=== PATIENT | female | born 1980 | race Hispanic/Latino ===

== ENCOUNTER 2017-01-05 15:24 | Emergency (ER) | payer SELFPAY ==
[2017-01-05 15:52] VITALS: TEMP 98.5; O2SAT 100
--- NOTE | 2017-01-05 17:23 | ED.PDOC ---
History of Present Illness - General Chief Complaint: General Stated Complaint: chronic leg pain Time Seen by Provider: 01/05/17 17:23 Source: patient, RN notes reviewed, Vital Signs reviewed, EMS notes reviewed Exam Limitations: no limitations - History of Present Illness Initial Comments: Sherry Hickey 36 y/o female with history of left chronic leg pain burning due ro rsd after she sustained left ankle fracture from sports injury 13 years ago and had it since then. Timing/Duration: other - chronic Improving Factors: other - taking pain meds Worsening Factors: movement Associated Symptoms: denies symptoms Allergies/Adverse Reactions: Allergies NO KNOWN ALLERGY Allergy (Verified 01/05/17 15:51) Home Medications: Ambulatory Orders HYDROcodone 10MG/APAP 325MG [[place] 10/325] 1 ea PO .Q4H PRN #20 tab 04/29/14 Pregabalin [Lyrica] 100 mg PO TID #60 cap 04/29/14 Acetamin W/Cod #3 Tab [Tylenol w/CODEINE #3] 1 ea PO Q6HRS #10 tab 01/05/17 PARoxetine HCL [Paxil] 20 mg PO DAILY #14 tab 01/05/17 Pregabalin [Lyrica] 100 mg PO TID #60 cap 01/05/17 Review of Systems - Review of Systems Constitutional: States: no symptoms reported EENTM: States: no symptoms reported Respiratory: States: no symptoms reported Cardiology: States: no symptoms reported Gastrointestinal/Abdominal: States: no symptoms reported Genitourinary: States: no symptoms reported Musculoskeletal: States: see HPI Skin: States: no symptoms reported Neurological: States: see HPI Endocrine: States: no symptoms reported Past Medical History (General) - Patient Medical History Hx Other PMH: Yes - rsd Hx Other - free text: Generalized anxiety disorder Surgical History: appendectomy, cholecystectomy, tonsillectomy, other - hysterectomy - Vaccination History Hx Tetanus, Diphtheria Vaccination: Yes Hx Influenza Vaccination: Yes Hx Pneumococcal Vaccination: No Immunizations Up to Date: Yes - Social History Hx Tobacco Use: No Hx Alcohol Use: Yes - occasional Hx Substance Use: No Hx Substance Use Treatment: No Hx Depression: No - Activities of Daily Living Patient Lives Alone: No - family Hospice Agency (if applicable):: None Grooming Ability: Independent Eating (Feeding) Ability: Independent Toileting Ability: Independent - Female History Patient is a Female of Child Bearing Age (10 -59 yrs old): No Patient : No Family Medical History - Family History Mother Living Status: Still Living Hx Family Hypertension: Yes Physical Exam - Physical Exam General Appearance: Alert, Anxious, No apparent distress Eye Exam: bilateral normal Ears, Nose, Throat: hearing grossly normal, normal ENT inspection, normal pharynx Neck: non-tender, full range of motion, supple Respiratory: chest non-tender, lungs clear, normal breath sounds Cardiovascular/Chest: normal peripheral pulses, regular rate, rhythm, no murmur Peripheral Pulses: radial,right: 2+, radial,left: 2+ Gastrointestinal/Abdominal: normal bowel sounds, non tender, soft Back Exam: normal inspection, no CVA tenderness Extremity: normal range of motion, non-tender, no pedal edema, no calf tenderness Neurologic: plate washer II-XII nml as tested, no motor/sensory deficits, alert, normal mood/affect, oriented x 3 DTR: 2+: Patellar, left, Patellar, right Skin Exam: normal color, warm/dry, cyanosis Lymphatic: no adenopathy Departure - Departure Clinical Impression: RSD (reflex sympathetic dystrophy) Neuropathic pain, leg Qualifiers: Laterality: left Qualified Code(s): G57.92 - Unspecified mononeuropathy of left lower limb Time of Disposition: 17:51 Disposition: Discharge to Home or Self Care Departure Forms: ED Discharge - Pt. Copy, Patient Portal Self Enrollment Instructions: Natural and Alternative Treatment Study Report: Vitamin C for Preventing Re Referrals: Dwayne Gomez MD [Primary Care Provider] - 1-2 Weeks Prescriptions: Acetamin W/Cod #3 Tab [Tylenol w/CODEINE #3] 1 ea PO Q6HRS #10 tab PARoxetine HCL [Paxil] 20 mg PO DAILY #14 tab Pregabalin [Lyrica] 100 mg PO TID #60 cap Home Medications: Ambulatory Orders HYDROcodone 10MG/APAP 325MG [[place] 10/325] 1 ea PO .Q4H PRN #20 tab 04/29/14 Pregabalin [Lyrica] 100 mg PO TID #60 cap 04/29/14 Acetamin W/Cod #3 Tab [Tylenol w/CODEINE #3] 1 ea PO Q6HRS #10 tab 01/05/17 PARoxetine HCL [Paxil] 20 mg PO DAILY #14 tab 01/05/17 Pregabalin [Lyrica] 100 mg PO TID #60 cap 01/05/17 Additional Instructions: KEEP APPOINTMENT WITH [facility]
[2017-01-05] MEDS ORDERED: HYDROcodone 10MG/APAP 325MG 1 EA TAB PO ONE (17:58)
[2017-01-05 18:30] VITALS: BP 131/86
== END 2017-01-05 18:32 | disposition home or self-care (01) ==
LOC: ER 15:24
DX: G90.522 Complex regional pain syndrome I of left lower limb (principal); G89.29 Other chronic pain; Z79.899 Other long term (current) drug therapy

== ENCOUNTER 2017-05-14 22:56 | Emergency (ER) | payer OTHER ==
[2017-05-14 23:26] VITALS: TEMP 98.7
[2017-05-14] MEDS ORDERED: KETOROLAC TROMETHAMINE INJ 30 MG/ML VIAL IV ONE (23:47)
--- NOTE | 2017-05-14 23:50 | ED.PDOC ---
History of Present Illness - General Chief Complaint: Abdominal Pain Stated Complaint: abd pain x4 weeks Time Seen by Provider: 05/14/17 23:14 Source: patient Exam Limitations: no limitations - History of Present Illness Initial Comments: Patient complains of abdominal pain x 3 months. She said she was in shelter for three months and was treated with Macrobid for a UTI. She says that she has had dysuria and low back pain. She has had previous episodes. She says that she is having anxiety with this episode as well. Is only taking Cymbalta at this point. No other complaints. Timing/Duration: changing over time Severity: mild Improving Factors: nothing Worsening Factors: nothing Associated Symptoms: denies symptoms Allergies/Adverse Reactions: Allergies NO KNOWN ALLERGY Allergy (Verified 01/05/17 15:51) Home Medications: Ambulatory Orders HYDROcodone 10MG/APAP 325MG [[place] 10/325] 1 ea PO .Q4H PRN #20 tab 04/29/14 Pregabalin [Lyrica] 100 mg PO TID #60 cap 04/29/14 Acetamin W/Cod #3 Tab [Tylenol w/CODEINE #3] 1 ea PO Q6HRS #10 tab 01/05/17 PARoxetine HCL [Paxil] 20 mg PO DAILY #14 tab 01/05/17 Pregabalin [Lyrica] 100 mg PO TID #60 cap 01/05/17 Review of Systems - Review of Systems Constitutional: States: no symptoms reported EENTM: States: no symptoms reported Respiratory: States: no symptoms reported Cardiology: States: no symptoms reported Gastrointestinal/Abdominal: States: see HPI Genitourinary: States: see HPI Musculoskeletal: States: no symptoms reported Skin: States: no symptoms reported Neurological: States: no symptoms reported Endocrine: States: no symptoms reported Hematologic/Lymphatic: States: no symptoms reported Past Medical History (General) - Patient Medical History Hx Asthma: No Hx of COPD: No Hx Cardiac Disorders: No Hx Diabetes: No - Vaccination History Hx Tetanus, Diphtheria Vaccination: No Hx Influenza Vaccination: No Hx Pneumococcal Vaccination: No - Social History Hx Tobacco Use: Yes Hx Alcohol Use: Yes - seldom Hx Substance Use: No Hx Substance Use Treatment: No Hx Depression: No - Female History Patient : No Family Medical History - Family History Mother Living Status: Still Living Hx Family Hypertension: Yes Physical Exam - Physical Exam General Appearance: Alert Respiratory: lungs clear, normal breath sounds Cardiovascular/Chest: normal peripheral pulses, regular rate, rhythm, no edema Gastrointestinal/Abdominal: normal bowel sounds, non tender, soft Back Exam: normal inspection, no CVA tenderness Skin Exam: normal color Progress - Progress Progress: 05/14/17 23:50 UA unremarkable. Toradol 30 mg IV and Ativan 1 mg IV given. 05/15/17 01:36 CT ab/pelvis showed no acute disease. Patient given referral numbers for gynecology. Laboratory Tests 05/14/17 05/14/17 05/14/17 23:29 23:42 23:42 WBC 8.1 RBC 4.17 L Hgb 11.9 L Hct 35.9 L MCV 86.1 MCH 28.5 MCHC 33.1 RDW 14.3 Plt Count 253 MPV 8.3 Absolute Neuts (auto) 6.00 Absolute Lymphs (auto) 1.40 Absolute Monos (auto) 0.40 Absolute Eos (auto) 0.20 Absolute Basos (auto) 0.00 Neutrophils % 74.4 Lymphocytes % 17.3 L Monocytes % 5.3 Eosinophils % 2.5 Basophils % 0.5 Sodium 142 Potassium 3.7 Chloride 109 Carbon Dioxide 26 Anion Gap 10.7 L BUN 17 Creatinine 0.90 BUN/Creatinine Ratio 18.9 Random Glucose 100 Serum Osmolality 284.7 Calcium 9.4 Total Bilirubin 0.5 AST 30 ALT 37 Alkaline Phosphatase 92 Serum Total Protein 7.0 Albumin 4.1 Globulin 2.9 Albumin/Globulin Ratio 1.4 Lipase 47 Urine Color Yellow Urine Appearance Clear Urine pH 5.5 Ur Specific [place] 1.020 Urine Protein Negative Urine Glucose (UA) Negative Urine Ketones Negative Urine Blood Trace-intact H Urine Nitrite Negative Urine Bilirubin Negative Urine Urobilinogen 0.2 Ur Leukocyte Esterase Negative Urine RBC 0-1 Urine WBC 5-10 H Ur Epithelial Cells 1-3 Urine Bacteria Rare Departure - Departure Clinical Impression: Abdominal pain Disposition: Discharge to Home or Self Care Condition: Good Departure Forms: ED Discharge - Pt. Copy, Patient Portal Self Enrollment Instructions: DI for Abdominal Pain-Adult Diet: resume usual diet Activity: ambulate only with walker Referrals: Dwayne Gomez MD [Primary Care Provider] - 1-2 Weeks Home Medications: Ambulatory Orders HYDROcodone 10MG/APAP 325MG [[place] 10/325] 1 ea PO .Q4H PRN #20 tab 04/29/14 Pregabalin [Lyrica] 100 mg PO TID #60 cap 04/29/14 Acetamin W/Cod #3 Tab [Tylenol w/CODEINE #3] 1 ea PO Q6HRS #10 tab 01/05/17 PARoxetine HCL [Paxil] 20 mg PO DAILY #14 tab 01/05/17 Pregabalin [Lyrica] 100 mg PO TID #60 cap 01/05/17 Additional Instructions: Follow up with a tier in next week.
[2017-05-15 01:18] VITALS: BP 134/89; O2SAT 97
--- NOTE | 2017-05-15 01:23 | CT ---
EXAM DESCRIPTION: Abdomen/Pelvis w/Contrast CLINICAL HISTORY: 37 years Female, abdominal pain COMPARISON: None. TECHNIQUE: Contiguous axial CT images of the abdomen and pelvis were acquired after the administration of intravenous contrast. Coronal and sagittal reformatted images are provided. This exam was performed according to our departmental dose-optimization program which includes use of Automated Exposure Control, adjustment of the mA and/or kV according to patient size and/or use of iterative reconstruction technique. FINDINGS: Chest base: Unremarkable. Liver: Diffuse hepatic steatosis Gallbladder: Surgically absent Spleen: Unremarkable. Adrenals: Unremarkable. Pancreas: Unremarkable. Right Kidney: No renal stones or hydronephrosis. Left Kidney: No renal stones or hydronephrosis. Aorta and branch vessels: Unremarkable. Patent mesenteric vessels. Lymph nodes: No lymphadenopathy. Bowels: No obstruction. Colon: Scattered colonic diverticula. Appendix: Not identified Peritoneum: No free air or free fluid. Pelvic organs: Uterus is absent. No large adnexal mass. Bladder: Unremarkable. Bones and soft tissues: No acute osseous or soft tissue abnormalities. IMPRESSION: No acute intra-abdominal abnormality. Diffuse hepatic steatosis. Scattered colonic diverticula. Electronically signed by: Roc Cline MD 05/15/2017 1:21 AM CDT
== END 2017-05-15 01:45 | disposition home or self-care (01) ==
LOC: ER 22:56
DX: R10.9 Unspecified abdominal pain (principal); Z87.891 Personal history of nicotine dependence
CPT/HCPCS: 74177; 80053; 81001; 83690; 85025; J1885; J2060

== ENCOUNTER → 2020-07-04 | Outpatient (CLI) | payer OTHER | LOC: LAB.NP 14:41 | PROVIDERS: ATTEND Nurse Practitioner Family | DX: R10.30 Lower abdominal pain, unspecified (principal) ==